=== PATIENT | female | born 1990 | race Caucasian/White ===

== ENCOUNTER 2017-02-18 18:08 | Emergency (ER) | payer MEDICAID ==
[~2017-02-18] VITALS: Ht 157.5 cm; Wt 113.5 kg
[~2017-02-18 18:08] MED LIST: PERC5TAB12 PO; ZOFR4TAB PO
[2017-02-18 18:10] VITALS: BP 180/95; PULSE 112; RESP 18; TEMP 98.7; O2SAT 98
--- NOTE | 2017-02-18 18:37 | PD ---
HPI Chief Complaint: Related Problem Time Seen by Provider: 18:20 Travel History International Travel<30 days: No Contact w/Intl Traveler<30days: No Traveled to known affect area: No History of Present Illness HPI 26-year-old female, approximately 7 weeks , presents to the emergency Department with complaint of lower abdominal cramping that has been intermittent since Sunday. She had onset of fever with MAXIMUM TEMPERATURE of 101.7 yesterday. Had fever today also. Denies cold/flu symptoms to include cough, nasal congestion, ear pain, sore throat, body aches. Denies vaginal bleeding, leaking. Reports increase in white nonodorous vaginal discharge. Reports vaginal itching. Denies dysuria. Reports urinary frequency. Reports vomiting in the mornings secondary to . Had 2 bouts of diarrhea today. Denies hematuria, hematochezia, hematemesis. Last menstrual period . This is her fourth and she had 3 live births. She has taken Tylenol for symptom management. Last took Tylenol at 5 PM. No known aggravating or relieving factors. Rates pain 08/21. Describes as cramping. Pain is intermittent. Allergies to morphine and Vanco. Primary care provider is Dr. Muro. Dr. Marrufo is appointment manager. Has appointment with appointment manager on March 01. Denies significant past medical history. Has no other medical complaints. No other modifying factors or associated signs and symptoms. PFSH Past Medical History Cancer: No Cardiovascular Problems: No Diabetes: No Endocrine: No Genitourinary: No Hepatitis: No Hiatal Hernia: No Immune Disorder: No Musculoskeletal: Yes Neurologic: No Psychiatric: No Reproductive: No Respiratory: No Thyroid Disease: No ?: LMP: 12/29/16 Past Surgical History AICD: No Joint Replacement: No Pacemaker: No Social History Tobacco Use: No Substance Use: No Allergies-Medications (Allergen,Severity, Reaction): Coded Allergies: morphine (Unverified Adverse Reaction, Severe, Confusion, 09/26/16) NIGHTMARES Reported Meds & Prescriptions Reported Meds & Active Scripts Active Reported Plus Iron 29-1 mg ( Vit-Iron Carbonyl) 29 Mg Iron-1 Mg Tab 1 Tab PO DAILY Review of Systems Except as stated in HPI: all other systems reviewed are Neg Physical Exam Narrative GENERAL: Well-nourished, well-developed female patient, in no acute distress; afebrile, nontoxic-appearing SKIN: Warm and dry. HEAD: Atraumatic. Normocephalic. EYES: Pupils equal and round. No scleral icterus. No injection or drainage. ENT: Mucous membranes pink and moist. NECK: Trachea midline. No lymphadenopathy. CARDIOVASCULAR: Regular rate and rhythm. No murmur appreciated. RESPIRATORY: No accessory muscle use. Clear to auscultation. Breath sounds equal bilaterally. GASTROINTESTINAL: Abdomen soft, non-tender, nondistended. Bilateral pelvic region nontender to palpation. Hepatic and splenic margins not palpable. No guarding, rigidity, rebound tenderness. BACK: No CVA tenderness. MUSCULOSKELETAL: No obvious deformities. No clubbing. No cyanosis. No edema. NEUROLOGICAL: Awake and alert. No obvious cranial nerve deficits. Motor grossly within normal limits. Normal speech. PSYCHIATRIC: Appropriate mood and affect; insight and judgment normal. Data Data Last Documented VS Vital Signs Date Time Temp Pulse Resp B/P (MAP) Pulse Ox O2 Delivery O2 Flow Rate FiO2 02/18/17 18:10 98.7 112 18 180/95 (123) 98 Orders Orders Beta Hcg (Quant/Titer) (02/18/17 18:30) Complete Blood Count With Diff (02/18/17 18:30) Basic Metabolic Panel (Bmp) (02/18/17 18:30) Gc And Chlamydia Pcr (02/18/17 18:30) Wet Prep Profile (02/18/17 18:30) Urinalysis - C+S If Indicated (02/18/17 18:30) Iv Access Insert/Monitor (02/18/17 18:30) Ed Urine Pregnancytest Poc (02/18/17 18:30) Us Pelvis (Ques Pr/Ect)W Trans (02/18/17 ) Influenzae A/B Antigen (02/18/17 20:21) Ed Discharge Order (02/18/17 21:16) Labs Laboratory Tests Test 02/18/17 18:50 02/18/17 19:25 White Blood Count 9.6 TH/MM3 Red Blood Count 4.64 MIL/MM3 Hemoglobin 13.4 GM/DL Hematocrit 38.6 % Mean Corpuscular Volume 83.2 FL Mean Corpuscular Hemoglobin 29.0 PG Mean Corpuscular Hemoglobin Concent 34.8 % Red Cell Distribution Width 15.3 % Platelet Count 279 TH/MM3 Mean Platelet Volume 8.5 FL Neutrophils (%) (Auto) 70.4 % Lymphocytes (%) (Auto) 20.2 % Monocytes (%) (Auto) 7.0 % Eosinophils (%) (Auto) 2.2 % Basophils (%) (Auto) 0.2 % Neutrophils # (Auto) 6.8 TH/MM3 Lymphocytes # (Auto) 1.9 TH/MM3 Monocytes # (Auto) 0.7 TH/MM3 Eosinophils # (Auto) 0.2 TH/MM3 Basophils # (Auto) 0.0 TH/MM3 CBC Comment DIFF FINAL Differential Comment Urine Color LIGHT-YELLOW Urine Turbidity HAZY Urine pH 6.0 Urine Specific [place] 1.005 Urine Protein NEG mg/dL Urine Glucose (UA) NEG mg/dL Urine Ketones NEG mg/dL Urine Occult Blood NEG Urine Nitrite NEG Urine Bilirubin NEG Urine Urobilinogen LESS THAN 2.0 MG/DL Urine Leukocyte Esterase TRACE Urine RBC 1 /hpf Urine WBC 2 /hpf Urine Squamous Epithelial Cells 7 /hpf Microscopic Urinalysis Comment CULT NOT INDICATED Blood Urea Nitrogen 6 MG/DL Creatinine 0.73 MG/DL Random Glucose 110 MG/DL Calcium Level 8.8 MG/DL Sodium Level 136 MEQ/L Potassium Level 3.5 MEQ/L Chloride Level 106 MEQ/L Carbon Dioxide Level 22.0 MEQ/L Anion Gap 8 MEQ/L Estimat Glomerular Filtration Rate 96 ML/MIN Human Chorionic Gonadotropin, Quant 51461 MIU/ML Clue Cells (Wet Prep) NONE SEEN Vaginal Trichomonas (Wet Prep) NONE SEEN Vaginal Yeast (Wet Prep) NONE SEEN Chlamydia trachomatis DNA (PCR) NOT DETECTED Neisseria gonorrhoeae DNA (PCR) NOT DETECTED MDM Medical Decision Making Medical Screen Exam Complete: Yes Emergency Medical Condition: Yes Medical Record Reviewed: Yes Differential Diagnosis Urinary tract infection, cervicitis, ectopic Narrative Course 26-year-old female proximal 27 weeks with complaint of lower abdominal cramping and fever. Has abnormal vaginal discharge. Took Tylenol at 5 PM. Is afebrile and nontoxic-appearing in the ER. CBC, BMP, urinalysis, UPT, beta-hCG , wet prep, chlamydia, gonorrhea, pelvic ultrasound ordered. 1900: Arlen Hamilton DNP assumed patient care at this time. See her note for patient final disposition. Kristi Ochoa Feb 18, 2017 18:37
[2017-02-18] MEDS ORDERED: PREN29TA PO (19:02)
[2017-02-18 19:05] LABS: AUTOMATED NEUTROPHIL # 6.8 TH/MM3 (1.8-7.7); BASOPHIL % 0.2 % (0.0-2.0); EOSINOPHIL # 0.2 TH/MM3 (0-0.4); EOSINOPHIL % 2.2 % (0.0-4.0); HEMATOCRIT 38.6 % (35.0-46.0); HEMOGLOBIN 13.4 GM/DL (11.6-15.3); LYMPH % 20.2 % (9.0-44.0); LYMPHOCYTE # 1.9 TH/MM3 (1.0-4.8); MEAN CELL VOLUME 83.2 FL (80.0-100.0); MEAN CORPUSCULAR HGB CONC 34.8 % (32.0-36.0); MEAN PLATELET VOLUME 8.5 FL (7.0-11.0); MONOCYTE # 0.7 TH/MM3 (0-0.9); NEUT % 70.4 % (16.0-70.0); PLATELET COUNT 279 TH/MM3 (150-450); RED BLOOD COUNT 4.64 MIL/MM3 (4.00-5.30); RED CELL DISTRIBUTION WIDTH 15.3 % (11.6-17.2); WHITE BLOOD COUNT 9.6 TH/MM3 (4.0-11.0)
[2017-02-18 19:14] LABS: BILIRUBIN, URINE NEG (NEG); BLOOD, URINE NEG (NEG); GLUCOSE,URINE NEG (NEG); KETONE, URINE NEG (NEG); NITRITE,URINE NEG (NEG); SQUAMOUS EPITHELIAL CELL URINE 7 /hpf (0-5); URINE COLOR LIGHT-YELLOW (YELLW/STRAW); URINE LEUKOCYTE ESTERASE TRACE (NEG)
[2017-02-18 19:25] LABS: CALCIUM 8.8 MG/DL (8.5-10.1); CREATININE 0.73 MG/DL (0.50-1.00)
--- NOTE | 2017-02-18 20:10 | RADRPT ---
EXAM DATE/TIME: 02/18/2017 19:24 [facility] COMPARISON: No previous studies available for comparison. INDICATIONS : Pelvic cramping. Fever. LAB(S): Beta-hC,155 MEDICAL HISTORY : . Gastroesophageal reflux disease. SURGICAL HISTORY : Left arm fracture surgery. Left foot surgery. ENCOUNTER: Initial ACUITY: 2 days PAIN SCORE: 7/10 LOCATION: Bilateral pelvis MEASUREMENTS: UTERUS: 10.5 x 8.0 x 5.2 cm ENDOMETRIAL STRIPE: >20 mm RIGHT OVARY: 3.5 x 3.0 x 2.3 cm LEFT OVARY: 2.3 x 2.5 x 1.9 cm FREE FLUID: No CROWN RUMP LENGTH: 0.9 cm = 7 WKS 0 DAYS FHR: 142 BPM FINDINGS: UTERUS: Intrauterine gestational sac with a pole is identified. Deville-rump length is 0.9 cm which is co mpatible with a gestational age of 7 weeks. heart motion is documented. Small crescent-shaped h ypoechoic area is identified adjacent to the gestational sac. RIGHT OVARY: Complex cyst measuring 1.6 x 1.2 x 2 cm is identified. LEFT OVARY: Ovary contains no mass or significant cystic lesion. MISCELLANEOUS: No free fluid. CONCLUSION: 1. Intrauterine gestational sac with pole and documented heart rate. 2. Possible small subchorionic hemorrhage. 3. Complex right ovarian cyst characteristic of a corpus luteal cyst. 4. No other significant abnormality. Reginadlo Ashton MD on February 18, 2017 at 20:02 Board Certified Radiologist. This report was verified electronically.
--- NOTE | 2017-02-18 20:49 | PD ---
Data Data Last Documented VS Vital Signs Date Time Temp Pulse Resp B/P (MAP) Pulse Ox O2 Delivery O2 Flow Rate FiO2 02/18/17 18:10 98.7 112 18 180/95 (123) 98 Orders Orders Beta Hcg (Quant/Titer) (02/18/17 18:30) Complete Blood Count With Diff (02/18/17 18:30) Basic Metabolic Panel (Bmp) (02/18/17 18:30) Gc And Chlamydia Pcr (02/18/17 18:30) Wet Prep Profile (02/18/17 18:30) Urinalysis - C+S If Indicated (02/18/17 18:30) Iv Access Insert/Monitor (02/18/17 18:30) Ed Urine Pregnancytest Poc (02/18/17 18:30) Us Pelvis (Ques Pr/Ect)W Trans (02/18/17 ) Influenzae A/B Antigen (02/18/17 20:21) Labs Laboratory Tests Test 02/18/17 18:50 02/18/17 19:25 White Blood Count 9.6 TH/MM3 Red Blood Count 4.64 MIL/MM3 Hemoglobin 13.4 GM/DL Hematocrit 38.6 % Mean Corpuscular Volume 83.2 FL Mean Corpuscular Hemoglobin 29.0 PG Mean Corpuscular Hemoglobin Concent 34.8 % Red Cell Distribution Width 15.3 % Platelet Count 279 TH/MM3 Mean Platelet Volume 8.5 FL Neutrophils (%) (Auto) 70.4 % Lymphocytes (%) (Auto) 20.2 % Monocytes (%) (Auto) 7.0 % Eosinophils (%) (Auto) 2.2 % Basophils (%) (Auto) 0.2 % Neutrophils # (Auto) 6.8 TH/MM3 Lymphocytes # (Auto) 1.9 TH/MM3 Monocytes # (Auto) 0.7 TH/MM3 Eosinophils # (Auto) 0.2 TH/MM3 Basophils # (Auto) 0.0 TH/MM3 CBC Comment DIFF FINAL Differential Comment Urine Color LIGHT-YELLOW Urine Turbidity HAZY Urine pH 6.0 Urine Specific [place] 1.005 Urine Protein NEG mg/dL Urine Glucose (UA) NEG mg/dL Urine Ketones NEG mg/dL Urine Occult Blood NEG Urine Nitrite NEG Urine Bilirubin NEG Urine Urobilinogen LESS THAN 2.0 MG/DL Urine Leukocyte Esterase TRACE Urine RBC 1 /hpf Urine WBC 2 /hpf Urine Squamous Epithelial Cells 7 /hpf Microscopic Urinalysis Comment CULT NOT INDICATED Blood Urea Nitrogen 6 MG/DL Creatinine 0.73 MG/DL Random Glucose 110 MG/DL Calcium Level 8.8 MG/DL Sodium Level 136 MEQ/L Potassium Level 3.5 MEQ/L Chloride Level 106 MEQ/L Carbon Dioxide Level 22.0 MEQ/L Anion Gap 8 MEQ/L Estimat Glomerular Filtration Rate 96 ML/MIN Human Chorionic Gonadotropin, Quant 92268 MIU/ML Clue Cells (Wet Prep) NONE SEEN Vaginal Trichomonas (Wet Prep) NONE SEEN Vaginal Yeast (Wet Prep) NONE SEEN MDM Supervised Visit with YOSI: Yes Narrative Course The history, exam, and medical decision-making in the associated mid-level provider note were completed with my assistance. I reviewed and agree with the findings presented. I attest that I had a [id number] encounter with the patient on the same day, and personally performed and documented my assessment and findings in the medical record. *My assessment and Findings: 26 year-old woman, , here with some lower abdominal pain, diarrhea, fevers. Looks well. Not much URI symptoms. Labs and ultrasound are reassuring. Patient looks well. We'll check a flu swab, treat if positive, otherwise supportive treatment for likely viral syndrome with fever. Bartolo Harris MD Feb 18, 2017 20:49
--- NOTE | 2017-02-18 21:18 | PD ---
Physical Exam Time Seen by Provider: 21:16 Narrative Please refer to previous providers documentation for details surrounding the patient's current visit. Patient is signed out to me with lab work and ultrasound pending. Pelvic is completed by me. GENITOURINARY: Normal external genitalia without lesions or erythema. Vaginal vault without blood. There is a thick white discharge within the vaginal vault.. Cervical os was closed without drainage. No cervical motion tenderness. Uterus nontender and nonenlarged. Bilateral adnexa nontender without masses. Data Data Last Documented VS Vital Signs Date Time Temp Pulse Resp B/P (MAP) Pulse Ox O2 Delivery O2 Flow Rate FiO2 02/18/17 18:10 98.7 112 18 180/95 (123) 98 Orders Orders Beta Hcg (Quant/Titer) (02/18/17 18:30) Complete Blood Count With Diff (02/18/17 18:30) Basic Metabolic Panel (Bmp) (02/18/17 18:30) Gc And Chlamydia Pcr (02/18/17 18:30) Wet Prep Profile (02/18/17 18:30) Urinalysis - C+S If Indicated (02/18/17 18:30) Iv Access Insert/Monitor (02/18/17 18:30) Ed Urine Pregnancytest Poc (02/18/17 18:30) Us Pelvis (Ques Pr/Ect)W Trans (02/18/17 ) Influenzae A/B Antigen (02/18/17 20:21) Ed Discharge Order (02/18/17 21:16) Labs Laboratory Tests Test 02/18/17 18:50 02/18/17 19:25 White Blood Count 9.6 TH/MM3 Red Blood Count 4.64 MIL/MM3 Hemoglobin 13.4 GM/DL Hematocrit 38.6 % Mean Corpuscular Volume 83.2 FL Mean Corpuscular Hemoglobin 29.0 PG Mean Corpuscular Hemoglobin Concent 34.8 % Red Cell Distribution Width 15.3 % Platelet Count 279 TH/MM3 Mean Platelet Volume 8.5 FL Neutrophils (%) (Auto) 70.4 % Lymphocytes (%) (Auto) 20.2 % Monocytes (%) (Auto) 7.0 % Eosinophils (%) (Auto) 2.2 % Basophils (%) (Auto) 0.2 % Neutrophils # (Auto) 6.8 TH/MM3 Lymphocytes # (Auto) 1.9 TH/MM3 Monocytes # (Auto) 0.7 TH/MM3 Eosinophils # (Auto) 0.2 TH/MM3 Basophils # (Auto) 0.0 TH/MM3 CBC Comment DIFF FINAL Differential Comment Urine Color LIGHT-YELLOW Urine Turbidity HAZY Urine pH 6.0 Urine Specific [place] 1.005 Urine Protein NEG mg/dL Urine Glucose (UA) NEG mg/dL Urine Ketones NEG mg/dL Urine Occult Blood NEG Urine Nitrite NEG Urine Bilirubin NEG Urine Urobilinogen LESS THAN 2.0 MG/DL Urine Leukocyte Esterase TRACE Urine RBC 1 /hpf Urine WBC 2 /hpf Urine Squamous Epithelial Cells 7 /hpf Microscopic Urinalysis Comment CULT NOT INDICATED Blood Urea Nitrogen 6 MG/DL Creatinine 0.73 MG/DL Random Glucose 110 MG/DL Calcium Level 8.8 MG/DL Sodium Level 136 MEQ/L Potassium Level 3.5 MEQ/L Chloride Level 106 MEQ/L Carbon Dioxide Level 22.0 MEQ/L Anion Gap 8 MEQ/L Estimat Glomerular Filtration Rate 96 ML/MIN Human Chorionic Gonadotropin, Quant 90644 MIU/ML Clue Cells (Wet Prep) NONE SEEN Vaginal Trichomonas (Wet Prep) NONE SEEN Vaginal Yeast (Wet Prep) NONE SEEN Chlamydia trachomatis DNA (PCR) NOT DETECTED Neisseria gonorrhoeae DNA (PCR) NOT DETECTED MDM Medical Record Reviewed: Yes Supervised Visit with YOSI: No Differential Diagnosis UTI versus STD versus BV versus viral syndrome versus gastroenteritis versus influenza Narrative Course 26-year-old female presents emergency department for evaluation of fever. Patient appears without distress. She has been initially evaluated by previous provider Kristi TALYOR. Pelvic is completed by me and without any obvious abnormality. Last Impressions Pelvis Ultrasound 02/18/17 0000 Signed Impressions: Service Date/Time: Saturday, February 18, 2017 19:24 - CONCLUSION: 1. Intrauterine gestational sac with pole and documented heart rate. 2. Possible small subchorionic hemorrhage. 3. Complex right ovarian cyst characteristic of a corpus luteal cyst. 4. No other significant abnormality. Reginaldo Ashton MD Laboratory Tests Test 02/18/17 18:50 02/18/17 19:25 White Blood Count 9.6 TH/MM3 Red Blood Count 4.64 MIL/MM3 Hemoglobin 13.4 GM/DL Hematocrit 38.6 % Mean Corpuscular Volume 83.2 FL Mean Corpuscular Hemoglobin 29.0 PG Mean Corpuscular Hemoglobin Concent 34.8 % Red Cell Distribution Width 15.3 % Platelet Count 279 TH/MM3 Mean Platelet Volume 8.5 FL Neutrophils (%) (Auto) 70.4 % Lymphocytes (%) (Auto) 20.2 % Monocytes (%) (Auto) 7.0 % Eosinophils (%) (Auto) 2.2 % Basophils (%) (Auto) 0.2 % Neutrophils # (Auto) 6.8 TH/MM3 Lymphocytes # (Auto) 1.9 TH/MM3 Monocytes # (Auto) 0.7 TH/MM3 Eosinophils # (Auto) 0.2 TH/MM3 Basophils # (Auto) 0.0 TH/MM3 CBC Comment DIFF FINAL Differential Comment Urine Color LIGHT-YELLOW Urine Turbidity HAZY Urine pH 6.0 Urine Specific [place] 1.005 Urine Protein NEG mg/dL Urine Glucose (UA) NEG mg/dL Urine Ketones NEG mg/dL Urine Occult Blood NEG Urine Nitrite NEG Urine Bilirubin NEG Urine Urobilinogen LESS THAN 2.0 MG/DL Urine Leukocyte Esterase TRACE Urine RBC 1 /hpf Urine WBC 2 /hpf Urine Squamous Epithelial Cells 7 /hpf Microscopic Urinalysis Comment CULT NOT INDICATED Blood Urea Nitrogen 6 MG/DL Creatinine 0.73 MG/DL Random Glucose 110 MG/DL Calcium Level 8.8 MG/DL Sodium Level 136 MEQ/L Potassium Level 3.5 MEQ/L Chloride Level 106 MEQ/L Carbon Dioxide Level 22.0 MEQ/L Anion Gap 8 MEQ/L Estimat Glomerular Filtration Rate 96 ML/MIN Human Chorionic Gonadotropin, Quant 89922 MIU/ML Clue Cells (Wet Prep) NONE SEEN Vaginal Trichomonas (Wet Prep) NONE SEEN Vaginal Yeast (Wet Prep) NONE SEEN Chlamydia trachomatis DNA (PCR) NOT DETECTED Neisseria gonorrhoeae DNA (PCR) NOT DETECTED Discussed the patient with my attending physician. I have added influenza and this is negative. Patient is discharged home to follow-up with primary care provider. She agrees to return immediately with any acute worsening symptoms. Diagnosis Primary Impression: Viral syndrome Additional Impression: Fever Qualified Codes: R50.9 - Fever, unspecified Referrals: Primary Care Physician Patient Instructions: Gastroenteritis (ED), General Instructions Additional Instruction: Follow-up with a primary care provider Rest Maintain adequate oral hydration Return immediately with any acute worsening of symptoms Med/Other Pt SpecificInfo: No Change to Meds Disposition: 01 DISCHARGE HOME Condition: Stable HamiltonArlen vallejo BRANDON Feb 18, 2017 21:18
== END 2017-02-18 22:39 | disposition home or self-care (01) ==
LOC: NEPD 18:08
DX: O26.892 Other specified pregnancy related conditions, second trimester (principal); B34.9 Viral infection, unspecified; O34.82 Maternal care for other abnormalities of pelvic organs, second trimester; N83.201 Unspecified ovarian cyst, right side; Z3A.27 27 weeks gestation of pregnancy; Z88.5 Allergy status to narcotic agent; Z34.92 Encounter for supervision of normal pregnancy, unspecified, second trimester
CPT/HCPCS: 76700; 76817; 80048; 81001; 84702; 84703; 85025; 87210; 87491; 87591; 87804

== ENCOUNTER → 2017-05-08 | Outpatient (CLI) | payer MEDICAID ==
[~2017-05-08] MED LIST changes: +AMOX500C PO; -PERC5TAB12 PO; +PREN29TA PO; -ZOFR4TAB PO
== END ==
LOC: HPND 09:05
PROVIDERS: ATTEND Obstetrics & Gynecology
DX: O99.212 Obesity complicating pregnancy, second trimester (principal); Z68.42 Body mass index [BMI] 45.0-49.9, adult; E66.01 Morbid (severe) obesity due to excess calories; O09.292 Supervision of pregnancy with other poor reproductive or obstetric history, second trimester
CPT/HCPCS: 76811

== ENCOUNTER → 2017-05-23 | Outpatient (CLI) | payer MEDICAID ==
--- NOTE | 2017-05-23 20:32 | EKG ---
Date Performed: 05/23/2017 Time Performed: 11:21:06 PTAGE: 26 years EKG: Sinus tachycardia. Left ventricular hypertrophy by voltage only Abnormal ECG NO PREVIOUS TRACING DOCTOR: Chip Aviles Interpretating Date/Time 05/23/2017 20:31:46
== END ==
LOC: HCAV 10:59
PROVIDERS: ATTEND Advanced Practice Midwife
DX: R00.2 Palpitations (principal)
CPT/HCPCS: 93005

== ENCOUNTER → 2017-06-05 | Outpatient (CLI) | payer MEDICAID | LOC: HPND 09:10 | PROVIDERS: ATTEND Obstetrics & Gynecology | DX: O99.212 Obesity complicating pregnancy, second trimester (principal); E66.01 Morbid (severe) obesity due to excess calories; Z68.42 Body mass index [BMI] 45.0-49.9, adult; O09.292 Supervision of pregnancy with other poor reproductive or obstetric history, second trimester | CPT/HCPCS: 76816 ==